=== PATIENT | female | born 1940 ===

== ENCOUNTER → 2021-03-19 | Outpatient (CLI) | payer SELFPAY ==
[2021-03-19 15:38] LABS: Body Fluid Crystals NEG (NEGATIVE)
[2021-03-19 15:57] LABS: BODY FLUID RBC 0.013 M/mm3 (0-0); RBC Count, Synovial Fluid 13000 /mm3 (0-0)
[2021-03-19 16:28] LABS: Appearance, Synovial Fluid Hazy (Clear); Color, Synovial Fluid Dark Yellow (None-P Yel)
[2021-03-19 16:29] LABS: WBC Count, Synovial Fluid 18 /mm3 (0-180)
[2021-03-19 16:53] LABS: Lymphs, Synovial Fluid 17 % (0-15); Monocytes/Macrophages, Synovia 8 % (0-65); Neutrophils, Synovial Fluid 75 % (0-24)
== END | disposition home or self-care (01) ==
LOC: LAB SHORT 15:23
PROVIDERS: Internal Medicine Rheumatology
DX: M06.9 Rheumatoid arthritis, unspecified (principal)
CPT/HCPCS: 87070; 87075; 87205; 89051; 89060